=== PATIENT | male | born 2000 ===

== ENCOUNTER 2020-01-16 07:52 | Emergency (ER) | payer SELFPAY ==
--- NOTE | 2020-01-16 08:09 | EDM.PDOC ---
ED HPI GENERAL MEDICAL PROBLEM - General Chief Complaint: Laceration Stated Complaint: CUT ON FINGER ON LT HAND Time Seen by Provider: 01/16/20 08:07 Source of Information: Reports: Patient History Limitations: Reports: No Limitations - History of Present Illness INITIAL COMMENTS - FREE TEXT/NARRATIVE: 19-year-old right hand dominant male presents with left index finger laceration last night at 10 PM as he was cutting meat, the knife slipped and cut him on the index finger. Patient denies fever, chills, headache, chest pain, shortness of breath, abdominal pain. Tetanus UTD. ROS: A 10-point review of systems, other than pertinent positives and negatives as stated per HPI, is otherwise negative Past medical history: No additional pertinent history Past Surgical history: No additional pertinent history Social history: No additional pertinent history Family history: No additional pertinent history PHYSICAL EXAM General: AOx4, GCS = 15, No distress HEENT: dry mucous membrane Neck: supple, no meningismus, no Kernig or Brudzinski Cardiac: S1S2 RRR Respiratory: CTAB, no crackles or rales, no wheezing Abdomen: Soft, nontender, no rebound or guarding, nondistended, no pulsatile mass. Back: nontender Musculoskeletal: NVI distally, no deformity, left index finger laceration at the DIP joint 1.5cm with tissue hanging out. Unable to range at the DIP joint. Full ROM at MCP/PIP joint of left index finger. Neuro: No focal deficits. - Related Data Allergies Allergy/AdvReac Type Severity Reaction Status Date / Time No Known Allergies Allergy Verified 01/16/20 08:13 Home Meds: Home Meds cephALEXin [Keflex] 500 mg PO Q8H #30 cap 01/16/20 [Rx] ED ROS GENERAL - Review of Systems Review Of Systems: Comprehensive ROS is negative, except as noted in HPI. (see dictation) ED EXAM, SKIN/RASH Exam: See Below (see dictation) ED SKIN PROCEDURES - Additional/Other Procedure(s) Other (Free Text) Procedure(s): LACERTION REPAIR: A time-out was completed verifying correct patient, procedure, site, positioning, and special equipment if applicable. Consent obtained after discussing risks, benefits, and alternatives. The wound was irrigated and locally anesthetized using 1% lidocaine via digital block. The wound was Enea, and noted to be 1.5 cm in length. The wound was contaminated with foreign body debris and was extensively irrigated with saline to foreign body removal. NV intact distally. two 5-0 prolene sutures in a simple interrupted single layer closure were placed in the typical fashion. The wound edges were well approximated. Hemostasis achieved. Sterile dressing applied and follow up care discussed. Risk of infection and follow up suture removal discussed. Time spent: 15 min Course - Vital Signs Last Recorded V/S: Last Vital Signs Temp 97.5 F 01/16/20 08:10 Pulse 58 L 01/16/20 08:10 Resp 16 01/16/20 08:10 BP 114/85 01/16/20 08:10 Pulse Ox 99 01/16/20 08:10 - Orders/Labs/Meds Meds: Medications Discontinued Medications Generic Name Dose Route Start Last Admin Trade Name Freq PRN Reason Stop Dose Admin Lidocaine HCl 10 ml 01/16/20 08:21 01/16/20 08:49 Xylocaine 1% INJECT 01/16/20 08:22 Not Given ONETIME ONE Lidocaine HCl Confirm 01/16/20 08:33 01/16/20 08:49 Xylocaine-Mpf 1% Administered 01/16/20 08:34 Not Given Dose 10 ml .ROUTE .STK-MED ONE Lidocaine HCl 10 ml 01/16/20 08:37 01/16/20 08:50 Xylocaine-Mpf 1% INJECT 01/16/20 08:38 10 ml ONETIME ONE Administration - Re-Assessments/Exams Free Text/Narrative Re-Assessment/Exam: 01/16/20 08:[address] Juan Chavez, he is awere of the potential tendon injury, he will see him on Saturday in the hand clinic at 0900, keep NPO Saturday night, close loosely with sutures, antibiotics. 01/16/20 0910 After suture repair in the ER, the patient improved and is currently stable for discharge. I performed a repeat exam and did not appreciate new abnormal findings. Patient exhibits normal vital signs and has a normal gait on road test. I advised the patient to return to the ER for reevaluation if symptoms worsened, including fever, worsening pain, or any other worrisome symptoms. I instructed the patient to follow up with Dr. Martinez on Saturday MEDICAL DECISION MAKING: I reviewed the patients past medical records, lab and radiographic findings. I discussed the case with the patient. My differential diagnosis included: Tendon injury Departure - Departure Time of Disposition: :11 Disposition: Home, Self-Care 01 Condition: Good Clinical Impression: Finger laceration involving tendon - Discharge Information *PRESCRIPTION DRUG MONITORING PROGRAM REVIEWED*: Not Applicable *COPY OF PRESCRIPTION DRUG MONITORING REPORT IN PATIENT JONNY: Not Applicable Prescriptions: cephALEXin [Keflex] 500 mg PO Q8H #30 cap Instructions: Laceration Care, Adult, [id number], Sutures, [place], or Adhesive Wound Closure, [id number] Referrals: Kathy Martinez [Ordering Only Provider] - 01/18/20 9:00 am ([facility] Do NOt eat anyting from Saturday midnight ) Forms: ED Department Discharge Additional Instructions: The need for follow-up, as well as the timing and circumstances, are variable depending upon the specifics of your emergency department visit. If you don't have a primary care physician on staff, we will provide you with a referral. We always advise you to contact your personal physician following an emergency department visit to inform them of the circumstance of the visit and for follow-up with them and/or the need for any referrals to a consulting specialist. The emergency department will also refer you to a specialist when appropriate. This referral assures that you have the opportunity for follow-up care with a specialist. All of these measure are taken in an effort to provide you with optimal care, which includes your follow-up. Under all circumstances we always encourage you to contact your private physician who remains a resource for coordinating your care. When calling for follow-up care, please make the office aware that this follow-up is from your recent emergency room visit. If for any reason you are refused follow-up, please contact the [facility] Emergency Department at and asked to speak to the emergency department charge nurse. [facility] need to [facility] for an appointment with Dr.Blendi Martinez, do not eat anythng past midnight on Saturday night. Sepsis Event Note (ED) - Focused Exam Vital Signs: Vital Signs Temp Pulse Resp BP Pulse Ox 01/16/20 08:10 97.5 F 58 L 16 114/85 99
[2020-01-16] MEDS ORDERED: Lidocaine 1% 10 ML MDV INJECT ONE (08:21)
== END 2020-01-16 09:25 | disposition home or self-care (01) ==
LOC: MW.ED 07:52
DX: S56.122A Laceration of flexor muscle, fascia and tendon of left index finger at forearm level, initial encounter (principal); W26.0XXA Contact with knife, initial encounter
CPT/HCPCS: 12001; 99282; J2001